=== PATIENT | male | born 1940 | race African-American/Black ===

== ENCOUNTER 2020-10-16 13:16 | Inpatient (IN) | payer OTHER ==
[2020-10-16] MEDS ORDERED: LACTATED RINGERS SOLUTION 1000 ML INFUS.BAG IV ONE ×2 (13:58→14:19)
[2020-10-16] MEDS ORDERED: VANCOMYCIN 1 GM in D5W (PRE-DOCKED) 1,000 MG/250 ML IVPB ONE ×2 (14:02→23:00)
[2020-10-16 14:52] LABS: BASO % 0.1 % (0-2.0); HEMATOCRIT 16.3 % (35.4-49); LYMPH % 13.6 % (8-40); MCH 28.5 pg (25.7-33.7); MEAN CELL VOLUME 89.3 fl (80-96); MEAN PLT VOLUME 7.6 fl (7.5-11.1); MONO % 4.7 % (3.8-10.2); NEUT % 81.6 % (42.8-82.8); PLATELET COUNT 330 10^3/uL (134-434); RBC 1.83 M/mm3 (4.00-5.60); RDW 15.4 % (11.9-15.9); WHITE BLOOD COUNT 19.8 K/mm3 (4.0-10.0)
[2020-10-16 14:53] LABS: HEMOGLOBIN 5.2 GM/dL (11.7-16.9); INR 1.36 (0.83-1.09); PROTHROMBIN TIME (PATIENT) 16.6 SEC (9.7-13.0)
[2020-10-16 14:56] LABS: ACTIVATED PTT 27.3 SECONDS (25.2-36.5)
[2020-10-16 15:04] LABS: CHLORIDE 98 mmol/L (98-107); SODIUM 131 mmol/L (136-145)
[2020-10-16] MEDS ORDERED: VANCOMYCIN 1 GRAM (PRE-DOCKED) 1,000 MG/250 ML BAG IVPB ONE (15:05)
[2020-10-16 15:07] LABS: ALBUMIN 1.8 g/dl (3.4-5.0); ANION GAP 14 MMOL/L (8-16); BLOOD UREA NITROGEN 98.9 mg/dL (7-18); CALCIUM 8.4 mg/dL (8.5-10.1); CO2 19 mmol/L (21-32); GLUCOSE,RANDOM 162 mg/dL (74-106)
[2020-10-16 15:09] LABS: SGOT/AST 118 U/L (15-37); SGPT/ALT 76 U/L (13-61)
[2020-10-16 15:10] LABS: CREATININE 4.6 mg/dL (0.55-1.3)
[2020-10-16 15:11] LABS: BILIRUBIN,TOTAL 1.3 mg/dL (0.2-1); TOT PROT 6.2 g/dl (6.4-8.2)
[2020-10-16 15:13] LABS: ALK PHOS 107 U/L (45-117)
[2020-10-16 15:14] LABS: LACTIC ACID 2.2 mmol/L (0.4-2.0)
[2020-10-16] MEDS ORDERED: NOREPINEPHRINE BITARTRATE 4 MG/4 ML ML IV ONE (15:33)
[2020-10-16] MEDS: NOREPINEPHRINE NS PREMIX 8,000 MCG/500 ML BAG IVPB SCH (15:53)
[2020-10-16] MEDS ORDERED: ACETAMINOPHEN 1000 MG/100 ML VIAL (NON FORMULARY) IVPB ONE (16:52)
[2020-10-16] MEDS ORDERED: MIDAZOLAM HCL 2 MG/2 ML SINGLE DOSE VIAL ONE (17:04)
[2020-10-16] MEDS ORDERED: fentaNYL CITRATE 250 MCG/5 ML VIAL ONE ×2 (17:04→20:29)
[2020-10-16] MEDS ORDERED: PROPOFOL 20 ML ONE ×3 (17:04)
[2020-10-16] MEDS ORDERED: ACETAMINOPHEN INJECTION 100 ML IVPB ONE (17:16)
[2020-10-16] MEDS ORDERED: ROCURONIUM BROMIDE 50 MG/5 ML SYRINGE ONE ×2 (18:09→19:00)
[2020-10-16] MEDS ORDERED: ceFAZolin 2 GRAM PREMIX BAG IVPB ONE (18:20)
[2020-10-16] MEDS ORDERED: BACITRACIN 50,000 UNITS VIAL TP ONE (18:27)
[2020-10-16] MEDS: ELECTROLYTE-148 SOLN 1,000 ML IV SCH (20:30)
[2020-10-16] MEDS: FENTANYL NS IVPB 500 MCG/100 ML BAG IVPB SCH (20:45)
[2020-10-16] MEDS ORDERED: LACTATED RINGERS SOLUTION 1,000 ML IV SCH (21:15)
[2020-10-16] MEDS ORDERED: MEROPENEM 1 GM in DEXTROSE 5%-WATER 100 ML IVPB ONE (21:50)
[2020-10-16 21:52] LABS: BASO % 0.2 % (0-2.0); HEMATOCRIT 21.3 % (35.4-49); LYMPH % 1.9 % (8-40); MCH 29.4 pg (25.7-33.7); MCHC 33.1 g/dl (32.0-35.9); MEAN PLT VOLUME 7.1 fl (7.5-11.1); MONO % 4.2 % (3.8-10.2); NEUT % 93.7 % (42.8-82.8); PLATELET COUNT 251 10^3/uL (134-434); RDW 14.7 % (11.9-15.9); WHITE BLOOD COUNT 14.1 K/mm3 (4.0-10.0)
[2020-10-16 22:03] LABS: INR 1.53 (0.83-1.09); PROTHROMBIN TIME (PATIENT) 18.6 SEC (9.7-13.0)
[2020-10-16 22:05] LABS: ACTIVATED PTT 28.5 SECONDS (25.2-36.5)
[2020-10-16 22:19] LABS: CALCIUM 7.6 mg/dL (8.5-10.1)
[2020-10-16] MEDS: CHLORHEXIDINE GLUCONATE 4% CLEANSER FOR DECOLONIZATION TP SCH (22:19)
[2020-10-16] MEDS: MUPIROCIN 2% TOPICAL OINTMENT FOR DECOLONIZATION NS SCH (22:19)
[2020-10-16 22:21] LABS: ALBUMIN 1.7 g/dl (3.4-5.0); BLOOD UREA NITROGEN 99.2 mg/dL (7-18); MAGNESIUM 2.1 mg/dL (1.8-2.4)
[2020-10-16 22:21] LABS: ARTERIAL BLD GAS O2 SATURATION 99.5 % (95-98); ARTERIAL BLOOD GAS BASE EXCESS -7.4 mmol/L (-2-2); ARTERIAL BLOOD GAS PO2 244.3 mmHg (80-100); ARTERIAL BLOOD GAS pH 7.357 (7.350-7.450)
[2020-10-16 22:23] LABS: VENT MODE A/C; VENT RATE 12
[2020-10-16 22:23] LABS: CREATININE 4.4 mg/dL (0.55-1.3); PHOSPHOROUS 5.1 mg/dL (2.5-4.9)
[2020-10-16] MEDS: INSULIN SLIDING SCALE (NOVOLOG) 1 VIAL SQ SCH (22:23)
[2020-10-16 22:25] LABS: BILIRUBIN,TOTAL 1.2 mg/dL (0.2-1); TOT PROT 5.7 g/dl (6.4-8.2)
[2020-10-16 22:48] LABS: ANISOCYTOSIS 1+; MACROCYTOSIS 0; PLATELET ESTIMATE NORMAL; ROULEAU 2+; TARGET CELLS 1+
[2020-10-17] MEDS: MIDAZOLAM IN 0.9 % SOD.CHLORID 100 MG/100 ML PLAST..BAG IVPB SCH (01:17)
[2020-10-17] MEDS: ELECTROLYTE-148 SOLN 1,000 ML IV SCH (05:29)
[2020-10-17] MEDS: INSULIN SLIDING SCALE (NOVOLOG) 1 VIAL SQ SCH ×4 (06:42→22:00)
[2020-10-17] MEDS ORDERED: VANCOMYCIN 1 GM in D5W (PRE-DOCKED) 1,000 MG/250 ML IVPB ONE (07:00)
[2020-10-17 08:24] LABS: HEMATOCRIT 21.3 % (35.4-49); HEMOGLOBIN 7.2 GM/dL (11.7-16.9); MCH 29.8 pg (25.7-33.7); MCHC 33.9 g/dl (32.0-35.9); MEAN CELL VOLUME 87.9 fl (80-96); MEAN PLT VOLUME 7.7 fl (7.5-11.1); PLATELET COUNT 285 10^3/uL (134-434); RBC 2.43 M/mm3 (4.00-5.60); RDW 14.1 % (11.9-15.9); WHITE BLOOD COUNT 16.1 K/mm3 (4.0-10.0)
[2020-10-17 08:52] LABS: CALCIUM 7.7 mg/dL (8.5-10.1)
[2020-10-17 08:53] LABS: BLOOD UREA NITROGEN 87.9 mg/dL (7-18)
[2020-10-17 08:56] LABS: CREATININE 3.8 mg/dL (0.55-1.3)
[2020-10-17] MEDS: MUPIROCIN 2% TOPICAL OINTMENT FOR DECOLONIZATION NS SCH ×2 (09:15→22:25)
[2020-10-17] MEDS ORDERED: MEROPENEM 500 MG VIAL (RESTRICTED TO ID) IVPB ONE ×2 (09:48→23:15)
[2020-10-17] MEDS ORDERED: DEXTROSE 5%-WATER 100 ML IVPB ONE ×2 (09:49→23:15)
[2020-10-17] MEDS: MEROPENEM 500 MG in DEXTROSE 5%-WATER 100 ML IVPB SCH ×2 (09:50→22:25)
[2020-10-17] MEDS ORDERED: VANCOMYCIN 1 GRAM (PRE-DOCKED) 1,000 MG/250 ML BAG IVPB ONE (10:00)
[2020-10-17] MEDS: VASOPRESSIN 40 UNITS in SODIUM CHLORIDE 98 ML IVPB SCH (13:11)
[2020-10-17] MEDS: FLUDROCORTISONE ACETATE 0.1 MG TABLET (FP) PO SCH (15:27)
[2020-10-17] MEDS: HYDROCORTISONE SOD SUCCINATE 100 MG/2 ML VIAL IVPB SCH ×2 (15:27→17:48)
[2020-10-17] MEDS: NOREPINEPHRINE NS PREMIX 8,000 MCG/500 ML BAG IVPB SCH (15:53)
[2020-10-17] MEDS ORDERED: SODIUM CHLORIDE 500 ML IV STA (16:05)
[2020-10-17] MEDS: CHLORHEXIDINE GLUCONATE 4% CLEANSER FOR DECOLONIZATION TP SCH (22:25)
[2020-10-18] MEDS: HYDROCORTISONE SOD SUCCINATE 100 MG/2 ML VIAL IVPB SCH ×3 (00:14→13:20)
[2020-10-18] MEDS: ELECTROLYTE-148 SOLN 1,000 ML IV SCH (01:12)
[2020-10-18] MEDS: FENTANYL NS IVPB 500 MCG/100 ML BAG IVPB SCH (01:12)
[2020-10-18 06:30] LABS: ARTERIAL BLD GAS O2 SATURATION 99.4 % (95-98); ARTERIAL BLOOD GAS BASE EXCESS -7.4 mmol/L (-2-2); ARTERIAL BLOOD GAS PO2 206.3 mmHg (80-100); ARTERIAL BLOOD GAS pH 7.362 (7.350-7.450)
[2020-10-18 06:33] LABS: VENT MODE A/C; VENT RATE 12
[2020-10-18] MEDS: INSULIN SLIDING SCALE (NOVOLOG) 1 VIAL SQ SCH ×2 (06:57→11:03)
[2020-10-18 07:22] LABS: HEMATOCRIT 18.7 % (35.4-49); LYMPH % 3.1 % (8-40); MCH 29.6 pg (25.7-33.7); MCHC 33.3 g/dl (32.0-35.9); MEAN PLT VOLUME 7.7 fl (7.5-11.1); MONO % 2.6 % (3.8-10.2); NEUT % 94.3 % (42.8-82.8); PLATELET COUNT 206 10^3/uL (134-434); RBC 2.11 M/mm3 (4.00-5.60); RDW 14.8 % (11.9-15.9); WHITE BLOOD COUNT 15.6 K/mm3 (4.0-10.0)
[2020-10-18 07:40] LABS: ALBUMIN 1.4 g/dl (3.4-5.0); BLOOD UREA NITROGEN 87.2 mg/dL (7-18); MAGNESIUM 1.9 mg/dL (1.8-2.4)
[2020-10-18 07:41] LABS: CALCIUM 7.6 mg/dL (8.5-10.1)
[2020-10-18 07:44] LABS: CREATININE 3.1 mg/dL (0.55-1.3)
[2020-10-18 07:45] LABS: BILIRUBIN,TOTAL 0.8 mg/dL (0.2-1); TOT PROT 5.1 g/dl (6.4-8.2)
[2020-10-18 07:49] LABS: HEMOGLOBIN 6.2 GM/dL (11.7-16.9)
[2020-10-18 08:24] LABS: INR 1.52 (0.83-1.09); PROTHROMBIN TIME (PATIENT) 18.5 SEC (9.7-13.0)
[2020-10-18] MEDS ORDERED: VANCOMYCIN 1 GRAM (PRE-DOCKED) 1,000 MG/250 ML BAG IVPB ONE (08:56)
[2020-10-18] MEDS ORDERED: MEROPENEM 500 MG VIAL (RESTRICTED TO ID) IVPB ONE (09:21)
[2020-10-18] MEDS ORDERED: DEXTROSE 5%-WATER 100 ML IVPB ONE (09:21)
[2020-10-18] MEDS ORDERED: PT OWN MED DRAWER 7, Y5N ONE (09:22)
[2020-10-18] MEDS: MEROPENEM 500 MG in DEXTROSE 5%-WATER 100 ML IVPB SCH (09:26)
[2020-10-18] MEDS: FLUDROCORTISONE ACETATE 0.1 MG TABLET (FP) PO SCH (09:26)
[2020-10-18] MEDS: MUPIROCIN 2% TOPICAL OINTMENT FOR DECOLONIZATION NS SCH (09:27)
[2020-10-18] MEDS ORDERED: CLINDAMYCIN 600MG PREMIX IVPB 600 MG/50 ML BAG IVPB SCH (10:00)
[2020-10-18 10:50] LABS: ANISOCYTOSIS 1+; MACROCYTOSIS 0; PLATELET ESTIMATE NORMAL
[2020-10-18 11:34] VITALS: TEMP 97.2
[2020-10-18 11:58] VITALS: BMI 24.0
[2020-10-18 12:03] VITALS: BP 114/57
[2020-10-18] MEDS: MIDAZOLAM IN 0.9 % SOD.CHLORID 100 MG/100 ML PLAST..BAG IVPB SCH (12:39)
[2020-10-18 12:40] VITALS: PULSE 81
[2020-10-18] MEDS: VASOPRESSIN 40 UNITS in SODIUM CHLORIDE 98 ML IVPB SCH (12:40)
[2020-10-18] MEDS ORDERED: SODIUM ZIRCONIUM CYCLOSILICATE (LOKELMA) 5 GM PACKET PO SCH (14:15)
[2020-10-18] MEDS ORDERED: VASOPRESSIN 20 UNITS/ML VIAL IV ONE (15:57)
[2020-10-18 16:16] LABS: BASO % 0.2 % (0-2.0); HEMOGLOBIN 7.1 GM/dL (11.7-16.9); LYMPH % 20.2 % (8-40); MCH 28.9 pg (25.7-33.7); MCHC 32.4 g/dl (32.0-35.9); MEAN CELL VOLUME 89.2 fl (80-96); MEAN PLT VOLUME 7.4 fl (7.5-11.1); MONO % 3.8 % (3.8-10.2); NEUT % 75.8 % (42.8-82.8); PLATELET COUNT 201 10^3/uL (134-434); RBC 2.47 M/mm3 (4.00-5.60); RDW 15.5 % (11.9-15.9); WHITE BLOOD COUNT 21.3 K/mm3 (4.0-10.0)
[2020-10-18 16:36] LABS: ALBUMIN 1.3 g/dl (3.4-5.0); BLOOD UREA NITROGEN 84.4 mg/dL (7-18); CALCIUM 7.9 mg/dL (8.5-10.1)
[2020-10-18 16:37] LABS: MAGNESIUM 2.3 mg/dL (1.8-2.4)
[2020-10-18 16:40] LABS: PHOSPHOROUS 5.5 mg/dL (2.5-4.9)
[2020-10-18 16:41] LABS: BILIRUBIN,TOTAL 0.7 mg/dL (0.2-1); TOT PROT 5.1 g/dl (6.4-8.2)
[2020-10-18 16:44] LABS: ANISOCYTOSIS 2+; MACROCYTOSIS 1+; PLATELET ESTIMATE NORMAL; TARGET CELLS 2+
[2020-10-18] MEDS ORDERED: AMINO ACIDS/PROTEIN HYDROLYS 30 ML LIQUID.PKT NGT SCH (17:30)
== END 2020-10-18 17:50 | disposition expired | DRG 974 ==
LOC: JER 13:16 → JERBED 16:29 → JICU 19:38
PROVIDERS: ADMIT Internal Medicine; ATTEND Internal Medicine
PROC: 0VB50ZZ Excision of Scrotum, Open Approach (ICD-10-PCS; 2020-10-16)
PROC: 0VBS0ZZ Excision of Penis, Open Approach (ICD-10-PCS; 2020-10-16)
PROC: 0V950ZX Drainage of Scrotum, Open Approach, Diagnostic (ICD-10-PCS; 2020-10-16)
PROC: 0BH17EZ Insertion of Endotracheal Airway into Trachea, Via Natural or Artificial Opening (ICD-10-PCS; 2020-10-16)
PROC: 5A1945Z Respiratory Ventilation, 24-96 Consecutive Hours (ICD-10-PCS; 2020-10-16)
PROC: 0T9B30Z Drainage of Bladder with Drainage Device, Percutaneous Approach (ICD-10-PCS; 2020-10-16)
PROC: 05HM33Z Insertion of Infusion Device into Right Internal Jugular Vein, Percutaneous Approach (ICD-10-PCS; principal; 2020-10-16 16:46)
PROC: 5A12012 Performance of Cardiac Output, Single, Manual (ICD-10-PCS; 2020-10-18)
DX: A41.89 Other specified sepsis (principal); R65.21 Severe sepsis with septic shock; B20 Human immunodeficiency virus [HIV] disease; M72.6 Necrotizing fasciitis; J96.00 Acute respiratory failure, unspecified whether with hypoxia or hypercapnia; G93.41 Metabolic encephalopathy; N17.9 Acute kidney failure, unspecified; J90 Pleural effusion, not elsewhere classified; R64 Cachexia; I12.9 Hypertensive chronic kidney disease with stage 1 through stage 4 chronic kidney disease, or unspecified chronic kidney disease; E11.22 Type 2 diabetes mellitus with diabetic chronic kidney disease; N18.9 Chronic kidney disease, unspecified; I95.9 Hypotension, unspecified; D64.9 Anemia, unspecified; N49.2 Inflammatory disorders of scrotum; N49.3 Fournier gangrene; D72.829 Elevated white blood cell count, unspecified; R41.82 Altered mental status, unspecified; E87.5 Hyperkalemia; H54.7 Unspecified visual loss; R00.1 Bradycardia, unspecified; Z88.0 Allergy status to penicillin; Z68.24 Body mass index [BMI] 24.0-24.9, adult; Z99.3 Dependence on wheelchair
CPT/HCPCS: 36415; 36430; 36600; 70450-TC; 71045-TC-FY; 72125-TC; 74176-TC; 80048; 80053; 82550; 82803; 82962; 83605; 83735; 84100; 84484; 85025; 85027; 85610; 85651; 85730; 86140; 86359; 86360; 86850; 86900; 86901; 86922; 87040; 87070; 87076; 87186; 87205; 88304-TC; 93005; 93010; 94002; 94760; 99291; C9803; G0480; J0131; P9058; U0003; U0005